=== PATIENT | female | born 1960 | race Caucasian/White ===

== ENCOUNTER 2021-09-16 22:19 | Emergency (ER) | payer MEDICARE, MEDICAID ==
[~2021-09-16] VITALS: Ht 165.1 cm; Wt 84.1 kg
[~2021-09-16 22:19] MED LIST: ASPI-1265 PO; CEPH-571 PO; HYDR-3565 PO; INDO-12 PO; LISI-222 PO; LORA0.5T PO; MELO-83 PO; PRED50TA PO
[2021-09-16 22:40] VITALS: BP 136/65
[2021-09-16 23:34] LABS: D-DIMER 1.47 MG/L FEU (0-0.50)
== END 2021-09-17 03:28 | disposition left against medical advice (07) ==
LOC: ER 22:19
DX: M79.672 Pain in left foot (principal); Z53.21 Procedure and treatment not carried out due to patient leaving prior to being seen by health care provider
CPT/HCPCS: 36415; 85379

== ENCOUNTER 2022-05-05 20:01 | Emergency (ER) | payer MEDICARE, MEDICAID ==
[~2022-05-05] VITALS: Ht 175.3 cm; Wt 80.9 kg
[2022-05-05 20:12] VITALS: BP 145/85
== END 2022-05-05 23:29 | disposition left against medical advice (07) ==
LOC: ER 20:02
DX: M79.672 Pain in left foot (principal); Z53.21 Procedure and treatment not carried out due to patient leaving prior to being seen by health care provider
CPT/HCPCS: 73630